=== PATIENT | female | born 1965 | race Caucasian/White ===

== ENCOUNTER 2017-01-10 15:03 | Day surgery (SDC) | payer MEDICARE, OTHER ==
[~2017-01-10] VITALS: Ht 154.9 cm; Wt 89.2 kg
[2017-01-10] VITALS (12 sets, daily range): BP systolic 115–134; BP diastolic 56–68; PULSE 87–94; RESP 11–31; Ht 154.9 cm; Wt 89.2 kg
[~2017-01-10 15:03] MED LIST: ALPR0.5T PO; CEFAZOLIN 2 GM/50 ML (PMX) 50 ML IVPB SCH; DULO30CA45 PO
[2017-01-10] MEDS ORDERED: ALPR0.5T6 PO (15:39)
[2017-01-10] MEDS ORDERED: CITA20TA6 PO (15:40)
[2017-01-10] MEDS ORDERED: ESOM40CA PO (15:40)
[2017-01-10] MEDS ORDERED: CANA100T PO (15:41)
[2017-01-10] MEDS ORDERED: POLYMYXIN/BACITRACIN 1L IRRIG ONE (16:46)
[2017-01-10] MEDS ORDERED: MIDAZOLAM 1 MG/ML 2 ML INJ ONE (16:55)
[2017-01-10] MEDS ORDERED: METOCLOPRAMIDE 10 MG INJ ONE (16:55)
[2017-01-10] MEDS ORDERED: BUPIVACAINE 0.5% (SDV) 30 ML INJ ONE (16:58)
[2017-01-10] MEDS ORDERED: LIDOCAINE 1% (MPF) 30 ML INJ ONE (16:59)
[2017-01-10] MEDS ORDERED: DESFLURANE 15 MIN ONE (17:00)
[2017-01-10] MEDS ORDERED: FENTAnyl 50 MCG/ML VIAL ONE (17:14)
[2017-01-10] MEDS ORDERED: PROPOFOL 20 ML ONE ×2 (17:14→17:39)
--- NOTE | 2017-01-10 17:16 | HPN ---
Date/Time of Note Date/Time of Note DATE: 01/10/17 TIME: 17:16 Interval H&P Admission Note Pt. seen H&P reviewed: No system changes GERMAINE BUCHANAN DPM Jan 10, 2017 17:16
[2017-01-10] MEDS ORDERED: CEFAZOLIN 1 GM INJ ONE (17:23)
[2017-01-10] MEDS ORDERED: LIDOCAINE 2% (MDV) 20 ML INJ ONE (17:34)
[2017-01-10] MEDS ORDERED: KETOROLAC 30 MG INJ ONE (17:58)
[2017-01-10] MEDS ORDERED: DIPHENHYDRAMINE 50 MG INJ IV PRN (18:00)
[2017-01-10] MEDS ORDERED: LABETALOL HCL 20MG INJ IV PRN (18:00)
[2017-01-10] MEDS ORDERED: METOCLOPRAMIDE 10 MG INJ IV PRN (18:00)
[2017-01-10] MEDS ORDERED: HYDROmorphONE (0.2 MG/ML) 10ML SYG IV PRN ×2 (18:00)
[2017-01-10] MEDS ORDERED: OXYCODONE/ACETAMINOPHEN (5/325) TAB PO PRN ×2 (18:00)
[2017-01-10] MEDS ORDERED: ONDANSETRON 4 MG INJ IV PRN (18:00)
[2017-01-10] MEDS ORDERED: hydrALAzine 20 MG INJ IV PRN (18:00)
[2017-01-10] MEDS ORDERED: MEPERIDINE 25 MG INJ IV PRN (18:00)
[2017-01-10] MEDS: HYDROmorphONE (0.2 MG/ML) 10ML SYG IV PRN ×2 (18:27→18:49)
--- NOTE | 2017-01-10 18:41 | OPR ---
DATE OF OPERATION: 01/10/2017 PREOPERATIVE DIAGNOSES: Painful hardware, right foot. POSTOPERATIVE DIAGNOSES: Painful hardware, right foot. OPERATION PERFORMED: Removal of painful hardware, right foot and excision of scar tissue right foot . ESTIMATED BLOOD LOSS: Less than 5 mL. SURGEON: Max Khalil DPM WATER FILTER CLEANER: None. ANESTHESIA: General. HEMOSTASIS: Pneumatic ankle tourniquet. FINDINGS: Thickened scar tissue over the dorsal medial first MPJ right foot. INDICATIONS: This is a pleasant 51-year-old female patient with multiple medical problems including diabetes mellitus who had undergone bunionectomy of the right foot and subsequently suffered from p ainful hardware situation and she was evaluated in the office. Recommendation was made after x-rays to have hardware removal of the right foot. Risks and complications of this type of surgery were d iscussed with patient in great detail including but not limited to postoperative infection, postoper ative pain, disability, gait disturbance, failure of surgery to correct the problem, need for additi onal surgical procedures, deep venous thrombosis, limb loss and loss of life. Patient understands t hese complications and agrees to procedure. Informed consent was signed, obtained, placed in the art. No guarantee or warranty was given or implied as to the outcome of this procedure either in ve rbal or written form. PROCEDURE IN DETAIL: The patient was seen in the preoperative area. Her post surgery were discusse d in great detail. Risks and complications discussed. Consent was obtained. Opportunity was given to patient to ask questions and all of the questions were answered. The patient was then taken to the operating room, was placed on the operating table in the supine position. General anesthesia wa s administered by the anesthesiologist. A tourniquet was applied to the right ankle. All bony prom inences were padded properly. The right foot was then scrubbed, prepped and draped in usual aseptic manner. A timeout was called by the circulating nurse. An Esmarch bandage was utilized to exsangu inate the right foot and the ankle tourniquet was inflated to 250 mmHg pressure. Attention was dire cted to the dorsal aspect of the right foot. Elliptical incisions were made using a sharp 15 blade encompassing the thickened scar tissue. This piece of skin was removed using a 15 blade. Bleeders were cauterized as necessary and vital neurova scular structures were protected. The incision was then deepened through the subcutaneous layer int o the joint capsule. A small incision was made over the joint capsule, exposing the underlying firs t metatarsal neck area. A freer was used to locate the screw head was easily found. The screw was removed and passed to the back table. The wound was then flushed with copious amounts of sterile no rmal saline. The joint capsule was closed using 3-0 Vicryl. The skin was closed. The subcutaneous layer was closed using 4-0 Vicryl and the skin was closed using 5-0 Monocryl suture in subcuticular stitch pattern. Steri-Strips were applied. Postop injection of 0.5% Marcaine plain and 2% lidocai ne plain was given about 10 mL around the first MPJ. A sterile dressing was applied. The pneumatic ankle tourniquet was deflated at this time and prompt hyperemic response was noted to the digits of the right foot. The patient tolerated the procedure and anesthesia well. She was taken to the rec overy room with vital signs stable and vascular status intact to the right foot. Patient will be di scharged home after postoperative monitoring. Patient may do partial weightbearing with postop shoe and a walker. Patient will be seen in the office in 1 week. Dictated By: MAX ABREU Conf#: [id number] DID#: [id number]
--- NOTE | 2017-01-11 07:49 | RADRPT ---
PROCEDURE: XR Right Foot. CLINICAL INDICATION: Right foot pain. TECHNIQUE: Two views. Frontal and lateral. COMPARISON: 07/26/2016. FINDINGS: There has been prior bunionectomy. Previously noted cannulated screw in the first metatarsal has be en removed. There is solid bony union at this site. There is soft tissue swelling overlying the first metatarsal phalangeal joint. The articular surfaces are otherwise intact. There is no lytic or blastic lesion. There is no radiopaque foreign body. IMPRESSION: 1. Previous bunionectomy. 2. The cannulated screw in the first metatarsal has been removed. RPTAT: QQ .Prabhu Balderas MD, MD Date Time Electronically viewed and signed by .Prabhu Balderas MD, MD on 01/11/2017 07:48 .R/
== END 2017-01-10 19:45 | disposition home or self-care (01) ==
LOC: SDS 15:03
PROVIDERS: ATTEND Podiatrist Foot & Ankle Surgery
DX: T84.84XA Pain due to internal orthopedic prosthetic devices, implants and grafts, initial encounter (principal); Y83.8 Other surgical procedures as the cause of abnormal reaction of the patient, or of later complication, without mention of misadventure at the time of the procedure; Y92.89 Other specified places as the place of occurrence of the external cause; E11.9 Type 2 diabetes mellitus without complications; I10 Essential (primary) hypertension; E78.5 Hyperlipidemia, unspecified; I73.9 Peripheral vascular disease, unspecified; E66.9 Obesity, unspecified; Z68.37 Body mass index [BMI] 37.0-37.9, adult
CPT/HCPCS: 20680; 73620; 82962; 88304; J0690; J1170; J1885; J2250; J3010; L3260; J2765

== ENCOUNTER 2017-04-26 07:19 | Day surgery (SDC) | payer MEDICARE, OTHER ==
[2017-04-26] VITALS (10 sets, daily range): BP systolic 106–127; BP diastolic 48–72; PULSE 73–92; RESP 17–19; Ht 154.9 cm; Wt 90.0 kg
[~2017-04-26] VITALS: Ht 154.9 cm; Wt 90.0 kg
[~2017-04-26 07:19] MED LIST changes: -ALPR0.5T PO; +ALPR0.5T6 PO; +CANA100T PO; -CEFAZOLIN 2 GM/50 ML (PMX) 50 ML IVPB SCH; +CITA20TA6 PO; -DULO30CA45 PO; +ESOM40CA PO
[2017-04-26] MEDS ORDERED: CEFAZOLIN 2 GM/50 ML (PMX) 50 ML IVPB ONE (07:30)
[2017-04-26] MEDS ORDERED: EPHEDrine SULFATE 50 MG/5 ML SYG IV PRN (10:30)
[2017-04-26] MEDS ORDERED: MIDAZOLAM 1 MG/ML 2 ML INJ IV PRN (10:30)
[2017-04-26] MEDS ORDERED: FENTAnyl 50 MCG/ML VIAL IV PRN ×2 (10:30)
[2017-04-26] MEDS ORDERED: OXYCODONE/ACETAMINOPHEN (5/325) TAB PO PRN ×2 (10:30)
[2017-04-26] MEDS ORDERED: morphine (1 MG/ML) 10ML SYRINGE IV PRN ×3 (10:30)
[2017-04-26] MEDS ORDERED: DIPHENHYDRAMINE 50 MG INJ IV PRN (10:30)
[2017-04-26] MEDS ORDERED: MEPERIDINE 25 MG INJ IV PRN (10:30)
[2017-04-26] MEDS ORDERED: HYDROmorphONE (0.2 MG/ML) 10ML SYG IV PRN ×3 (10:30)
[2017-04-26] MEDS ORDERED: ONDANSETRON 4 MG INJ IV PRN (10:30)
[2017-04-26] MEDS ORDERED: ATROPINE 1 MG/10 ML SYRINGE IV PRN (10:30)
[2017-04-26] MEDS ORDERED: LABETALOL HCL 20MG INJ IV PRN (10:30)
[2017-04-26] MEDS ORDERED: hydrALAzine 20 MG INJ IV PRN (10:30)
--- NOTE | 2017-04-26 10:40 | HPN ---
Date/Time of Note Date/Time of Note DATE: 04/26/17 TIME: 10:40 Interval H&P Admission Note Pt. seen H&P reviewed: No system changes GERMAINE BUCHANAN DPM Apr 26, 2017 10:40
[2017-04-26] MEDS ORDERED: BUPIVACAINE 0.25% (MPF) 30 ML INJ INJ ONE (11:19)
[2017-04-26] MEDS ORDERED: LIDOCAINE 2% (MDV) 20 ML INJ INJ ONE (11:19)
--- NOTE | 2017-04-26 12:21 | OPPN ---
Date/Time of Note Date/Time of Note DATE: 04/26/17 TIME: 12:17 Operative Report Preoperative Diagnosis Painful right foot scar S/P right foot bunion correction Morbid obesity Diabetes mellitus Peripheral neuropathy Postoperative Diagnosis Painful right foot scar Cyst right foot S/P right foot bunion correction Morbid obesity Diabetes mellitus Peripheral neuropathy Operation/Procedure Performed Surgical excision of painful scar right foot Surgical excision of cysts right foot Scar revision right foot Provider: GERMAINE BUCHANAN DPM Anesthesia: MAC Estimated blood loss: 0 - 10 ml's Specimens Skin lesion along with cysts of the right foot Complications: None GERMAINE BUCHANAN DPM Apr 26, 2017 12:20
[2017-04-26] MEDS ORDERED: BUPIVACAINE 0.5% (SDV) 30 ML INJ ONE (18:03)
[2017-04-26] MEDS ORDERED: ROCURONIUM 50 MG INJ ONE (18:03)
[2017-04-26] MEDS ORDERED: LIDOCAINE 2% (SDV) 5 ML INJ ONE (18:03)
[2017-04-26] MEDS ORDERED: MIDAZOLAM 1 MG/ML 2 ML INJ ONE (18:03)
[2017-04-26] MEDS ORDERED: ONDANSETRON 4 MG INJ ONE (18:03)
[2017-04-26] MEDS ORDERED: GLYCOPYRROLATE 0.4 MG INJ ONE (18:03)
[2017-04-26] MEDS ORDERED: LIDOCAINE 1% (MPF) 30 ML INJ ONE (18:03)
[2017-04-26] MEDS ORDERED: PROPOFOL 20 ML ONE (18:03)
[2017-04-26] MEDS ORDERED: LIDOCAINE 2% (MDV) 20 ML INJ ONE (18:03)
[2017-04-26] MEDS ORDERED: NEOSTIGMINE 3 MG/3 ML SYRINGE ONE (18:03)
[2017-04-26] MEDS ORDERED: DEXAMETHASONE 4 MG/ML 1 ML INJ ONE (18:03)
[2017-04-26] MEDS ORDERED: CEFAZOLIN 1 GM INJ ONE (18:03)
[2017-04-26] MEDS ORDERED: FENTAnyl 50 MCG/ML VIAL ONE (18:03)
[2017-04-26] MEDS ORDERED: FLUMAZENIL 0.5 MG INJ ONE (18:03)
[2017-04-26] MEDS ORDERED: SUCCINYLCHOLINE CHLORIDE 100 MG/5 ML SYG IV ONE (18:03)
== END 2017-04-26 13:00 | disposition home or self-care (01) ==
LOC: SDS 07:19
PROVIDERS: ATTEND Podiatrist Foot & Ankle Surgery
DX: L90.5 Scar conditions and fibrosis of skin (principal); L92.8 Other granulomatous disorders of the skin and subcutaneous tissue; G47.30 Sleep apnea, unspecified; E11.42 Type 2 diabetes mellitus with diabetic polyneuropathy; E66.01 Morbid (severe) obesity due to excess calories; Y83.8 Other surgical procedures as the cause of abnormal reaction of the patient, or of later complication, without mention of misadventure at the time of the procedure; K21.9 Gastro-esophageal reflux disease without esophagitis; M79.7 Fibromyalgia; Z87.39 Personal history of other diseases of the musculoskeletal system and connective tissue; Z68.37 Body mass index [BMI] 37.0-37.9, adult
CPT/HCPCS: 11426; 82962; 84703; 88304; J0690; J1100; J2250; J2405; J3010; J2710; J7999